=== PATIENT | male | born 1975 | race Caucasian/White ===

== ENCOUNTER 2016-04-29 05:49 | Emergency (ER) | payer OTHER ==
[2016-04-29 06:43] VITALS: BP 132/81
--- NOTE | 2016-04-29 06:48 | ED Physician Documentation ---
General Adult - HISTORIAN Historian: patient - HPI Stated Complaint: Chest Pain Chief Complaint: General Adult Timing: gone now Further Comments: yes (41 year old male patient presents with complaints of pain between his shoulder blades which occurred on Tuesday night in the middle of the night. Patient denies chest pain, denies SOB, denies N/V, reports the pain lasted for 5 hours and resolved on it's own. Patient does not have PCP, last FLP was "years ago", cannot recall results. Patient reports family history of HTN, denies family history of marfan's.) - ROS CONST: no problems EYES/ENT: none CVS/RESP: none GI/: none MS/SKIN/LYMPH: back pain - PAST HX Past History: hypertension Surgeries/Procedures: none Allergies/Adverse Reactions: Allergies Allergy/AdvReac Type Severity Reaction Status Date / Time No Known Allergies Allergy Unverified 04/29/16 06:05 Home Medications: Ambulatory Orders Medication Instructions Recorded NK [NK] 04/29/16 - SOCIAL HX Smoking History: cigarettes - FAMILY HX Family History: No - VITAL SIGNS Vital Signs: Vital Signs Temp Pulse Resp BP Pulse Ox 97 F L 97 H 16 143/102 99 04/29/16 05:50 04/29/16 05:50 04/29/16 05:50 04/29/16 05:50 04/29/16 05:50 - REVIEWED ASSESSMENTS Nursing Assessment Reviewed: Yes Vitals Reviewed: Yes Progress - Progress Progress: Reviewed risk factors for cardiac disease with patient. Not currently taking any BP medications, instructed to establish PCP and go for wellness check including FLP. List of providers given to patient. General Adult Physical Exam - PHYSICAL EXAM GENERAL APPEARANCE: anxious EENT: eye inspection normal, AFSHAN RESPIRATORY: no resp distress, chest non-tender, breath sounds normal CVS: reg rate & rhythm, heart sounds normal, equal pulses, no murmur, no gallop , PMI nml, no JVD, no friction rub, 24 ABDOMEN: soft, no organomegaly, normal bowel sounds, no abdominal bruit, no distension SKIN: normal color, warm/dry, NR, INT, PAL, DR EXTREMITIES: non-tender, normal range of motion, no evidence of injury, no edema , J, [employer] NEURO: oriented X3, CN's nml as tested, motor nml, sensation nml, mood/affect nml Discharge Clincal Impression: Anxiety about health Additional Instructions: Establish primary care - you need to have your lipids checked and a wellness check Home Medications: Ambulatory Orders NK [NK] 04/29/16 Condition: Stable Disposition: HOME, SELF-CARE Decision to Admit: NO Decision Time: 06:43
== END 2016-04-29 06:42 | disposition home or self-care (01) ==
LOC: ED 05:49
DX: F41.9 Anxiety disorder, unspecified (principal); R07.89 Other chest pain
CPT/HCPCS: 99282